=== PATIENT | female | born 1960 | race Caucasian/White ===

== ENCOUNTER 2019-05-06 10:15 | Outpatient (CLI) | payer MEDICAID ==
[2019-05-06 13:08] LABS: BASOPHILS # (AUTO) 0.1 10^3/uL (0.0-0.1); BASOPHILS % (AUTO) 0.9 %; EOSINOPHILS # (AUTO) 0.1 10^3/uL (0.0-0.7); EOSINOPHILS % (AUTO) 1.2 %; LYMPHOCYTES # (AUTO) 1.8 10^3/uL (1.5-3.5); MEAN CORPUSCULAR HEMOGLOBIN 32.5 pg (27.0-31.0); MEAN CORPUSCULAR HGB CONC 32.8 g/dL (32.0-36.0); MEAN CORPUSCULAR VOLUME 99.1 fL (81.0-99.0); MEAN PLATELET VOLUME 9.3 fL (7.9-10.8); MONOCYTES # (AUTO) 0.6 10^3/uL (0.0-1.0); MONOCYTES % (AUTO) 8.7 %; NEUTROPHILS # (AUTO) 4.2 10^3/uL (1.5-6.6); NEUTROPHILS % (AUTO) 61.8 %; PLT - PLATELET COUNT 303 10^3/uL (130-450); RED BLOOD COUNT 4.62 10^6/uL (4.20-5.40); RED CELL DISTRIBUTION WIDTH 12.6 % (12.0-15.0); WHITE BLOOD COUNT 6.8 x10^3/uL (4.8-10.8)
[2019-05-06 13:32] LABS: HB2 TOTAL 15.3 g/dL; HEMOGLOBIN A1C 0.54 g/dL; HEMOGLOBIN A1C % 5.4 % (4.6-6.2)
[2019-05-06 13:38] LABS: ALBUMIN 4.4 g/dL (3.2-5.5); ALBUMIN/GLOBULIN RATIO 1.6 (1.0-2.2); ALKALINE PHOSPHATASE 96 IU/L (42-121); ALT ALANINE AMINOTRANSFERASE 22 IU/L (10-60); AST ASPARTATE AMINOTRANSFERASE 31 IU/L (10-42); BILIRUBIN,TOTAL 0.4 mg/dL (0.2-1.0); BUN - BLOOD UREA NITROGEN 11 mg/dL (6-20); CALCIUM 9.5 mg/dL (8.5-10.3); CARBON DIOXIDE - CO2 27 mmol/L (21-32); CHLORIDE 106 mmol/L (101-111); CHOL/HDL RATIO 2.6 (<4.4); CHOLESTEROL 202 mg/dL; CREATININE 0.7 mg/dL (0.4-1.0); GFR - MDRD 85 (>89); GLUCOSE 99 mg/dL (70-100); HDL CHOLESTEROL 77 mg/dL; LDL CHOLESTEROL,CALCULATED 111 mg/dL; LDL/HDL RATIO 1.4 (<4.4); SODIUM 141 mmol/L (135-145); TOTAL PROTEIN 7.2 g/dL (6.7-8.2); VLDL CHOLESTEROL 14 mg/dL
== END 2019-05-06 23:59 | disposition home or self-care (01) ==
LOC: LAB.WCP 10:15
PROVIDERS: ATTEND Physician Assistant
DX: Z13.220 Encounter for screening for lipoid disorders (principal); R63.4 Abnormal weight loss
CPT/HCPCS: 36415; 80053; 80061; 83036; 83721; 84443; 85025

== ENCOUNTER 2019-06-08 08:44 | Outpatient (CLI) | payer MEDICAID ==
--- NOTE | 2019-06-08 14:48 | Ultrasound Report ---
Reason: ABNORMAL MAMMO Procedure Date: 06/08/2019 Accession Number: [id number] / [id number] Procedure: US - Breast Unilateral Limited CPT Code: Final Report FULL RESULT: EXAM: Diagnostic Shaq Dorado, Breast Unilateral Limited DATE: 06/08/2019 10:02 AM CLINICAL HISTORY: The patient is a 59-year-old female presenting with intermittent right nipple discharge and pain. No reported family history breast cancer. BILATERAL MAMMOGRAM: TECHNIQUE: (B) - Bilateral CC and MLO views were obtained. True lateral and magnification views of the right breast obtained. COMPARISON: None. New baseline. PARENCHYMAL PATTERN: (A) - The breasts demonstrate scattered fibroglandular densities bilaterally. FINDINGS: Nonspecific glandular asymmetry noted on this new baseline examination. There are no suspicious masses, calcifications, or areas of distortion. Specifically, there is no explanation for intermittent right-sided nipple discharge and focal pain. RIGHT BREAST ULTRASOUND: TECHNIQUE: A high-frequency transducer was utilized to evaluate the periareolar position of the breast. Doppler utilized as appropriate. Can Conveyor Feeder static images obtained. FINDINGS: [place] of normal fibroglandular tissue present. No dilated ducts, solid mass, cysts, hyperemia or distortion. There are no sonographically suspicious findings. IMPRESSION: Benign findings. BI-RADS category 2. RECOMMENDATION: ( 1. Clinical follow-up of the right breast for pain and discharge. Negative imaging should not dissuade further evaluation of any suspicious changes. 2. Screening mammography is recommended annually. BI-RADS CATEGORY: (2) - Benign Findings. STANDARD QUALIFYING STATEMENTS: This examination was not reviewed with the aid of Computer-Aided Detection (CAD). A negative or benign imaging report should not preclude biopsy if clinically suspicious findings are present. Dense breasts may obscure an underlying neoplasm.
== END 2019-06-08 08:45 | disposition home or self-care (01) ==
LOC: DI 08:44
PROVIDERS: ATTEND Physician Assistant
DX: N64.4 Mastodynia (principal); N64.52 Nipple discharge
CPT/HCPCS: 76642; 77066

== ENCOUNTER 2019-06-08 08:49 | Outpatient (CLI) | payer MEDICAID ==
[2019-06-08] MEDS ORDERED: IOVERSOL 320 100 ML VIAL IVP ONE ×2 (08:53→11:39)
[2019-06-08] MEDS ORDERED: IOVERSOL 320 50 ML VIAL ONE (08:53)
[2019-06-08 09:42] LABS: CALCIUM 9.2 mg/dL (8.5-10.3); CREATININE 0.6 mg/dL (0.4-1.0)
[2019-06-08] MEDS ORDERED: IOVERSOL 320 50 ML VIAL PO ONE (11:39)
--- NOTE | 2019-06-08 16:02 | XRAY Report ---
Reason: PAIN IN RT HIP Procedure Date: 06/08/2019 Accession Number: [id number] / [id number] Procedure: XR - Hip w/Pelvis 2-3V RT CPT Code: Final Report FULL RESULT: EXAM: RIGHT HIP RADIOGRAPHY EXAM DATE: 06/08/2019 09:16 AM. CLINICAL HISTORY: PAIN IN RT HIP. COMPARISON: None. TECHNIQUE: 3 views. FINDINGS: Bones: Normal. No fractures or bone lesion. Joints: Mildly shallow right acetabulum with femoral head relatively uncovered laterally. Marked superior right hip joint space narrowing. Moderate ring osteophyte formation at the right femoral head. Left hip unremarkable. Pubic symphysis and sacroiliac joints unremarkable. Metallic cages at the L5-S1 disk space. Soft Tissues: Bilateral pelvic phleboliths. IMPRESSION: Mild right acetabular dysplasia. Severe right hip osteoarthritis. RADIA
--- NOTE | 2019-06-08 17:04 | CT Report ---
Reason: ABD PAIN, WEIGHT LOSS, UMBILICAL HERNIA Procedure Date: 06/08/2019 Accession Number: [id number] / [id number] Procedure: CT - Abdomen/Pelvis W CPT Code: Final Report FULL RESULT: EXAM: CT ABDOMEN AND PELVIS EXAM DATE: 06/08/2019 10:55 AM. CLINICAL HISTORY: Abdominal pain. Weight loss. Umbilical hernia. COMPARISONS: HIP W/PELVIS 2-3V RT 06/08/2019 9:00 AM. TECHNIQUE: Routine helical CT imaging was performed through the abdomen and pelvis. IV contrast: Optiray 320 100 mL. Enteric contrast: No. Reconstructions: Coronal and sagittal. In accordance with CT protocol optimization, one or more of the following dose reduction techniques were utilized for this exam: automated exposure control, adjustment of mA and/or KV based on patient size, or use of iterative reconstructive technique. FINDINGS: Lung Bases: Unremarkable. Liver: Mildly hypodense consistent with fatty infiltration. No discrete lesions. Gallbladder/Bile Ducts: Unremarkable. Spleen: Normal. Pancreas: Normal. Adrenal Glands: Normal. Kidneys: The right kidney is normal. There is a simple cyst affiliated with the medial aspect of the upper pole of the left kidney measuring 2.5 cm in maximal dimension. No solid renal masses. No hydronephrosis nor hydroureter. Peritoneal Cavity/Bowel: The colon is stool-filled. There are no dilated segments of small or large bowel. Few shotty mesenteric and retroperitoneal lymph nodes present. No dagmar adenopathy or free fluid. Pelvic Organs: The bladder and visualized pelvic organs are within normal limits. Vasculature: Atherosclerotic calcifications are affiliated with the aorta and visceral arteries. No aneurysmal dilation. Bones: Degenerative changes in the lumbar spine. L5-S1 disk metallic cage hardware appears intact. Other: Tiny fat-containing umbilical hernia is noted. No evidence for incarceration. IMPRESSION: 1. Moderate retained stool in the colon. No acute inflammatory process. 2. Tiny fat-containing umbilical hernia. No incarceration. 3. Atherosclerotic calcifications in the aorta and visceral arteries. RADIA
== END 2019-06-08 08:50 | disposition home or self-care (01) ==
LOC: DI 08:49
PROVIDERS: ATTEND Physician Assistant
DX: R10.9 Unspecified abdominal pain (principal); R63.4 Abnormal weight loss; K42.9 Umbilical hernia without obstruction or gangrene; M16.11 Unilateral primary osteoarthritis, right hip; Q65.89 Other specified congenital deformities of hip; N64.4 Mastodynia; N64.52 Nipple discharge
CPT/HCPCS: 36415; 73502; 74177; 76642; 77066; 80048; Q9967

== ENCOUNTER 2019-06-29 08:00 | Outpatient (CLI) | payer MEDICAID ==
[2019-06-29 10:02] LABS: H. PYLORIS ANTIGEN STL NEGATIVE (Negative)
== END 2019-06-29 23:59 | disposition home or self-care (01) ==
LOC: LAB.R 08:00
PROVIDERS: ATTEND Surgery
DX: R10.9 Unspecified abdominal pain (principal)
CPT/HCPCS: 87338

== ENCOUNTER 2019-07-07 10:20 | Day surgery (SDC) | payer MEDICAID ==
[2019-07-07] MEDS ORDERED: LACTATED RINGERS 1,000 ML IV ONE ×2 (10:21→12:42)
[2019-07-07] MEDS ORDERED: LIDO GARGLE 30 ML BOTTLE PO ONE (11:20)
[2019-07-07] MEDS ORDERED: LIDO GARGLE 30 ML BOTTLE ONE (11:41)
[2019-07-07] MEDS ORDERED: MIDAZOLAM 2 MG/2 ML VIAL IVP ONE (11:54)
[2019-07-07] MEDS ORDERED: fentaNYL 250 MCG/5 ML VIAL IVP ONE (11:54)
[2019-07-07 13:35] VITALS: BP 113/76
== END 2019-07-07 10:21 | disposition home or self-care (01) ==
LOC: SDS 10:20
PROVIDERS: ATTEND Surgery
PROC: 0DB68ZX Excision of Stomach, Via Natural or Artificial Opening Endoscopic, Diagnostic (ICD-10-PCS; 2019-07-07)
PROC: 0DB48ZX Excision of Esophagogastric Junction, Via Natural or Artificial Opening Endoscopic, Diagnostic (ICD-10-PCS; 2019-07-07)
PROC: 0DBE8ZX Excision of Large Intestine, Via Natural or Artificial Opening Endoscopic, Diagnostic (ICD-10-PCS; principal; 2019-07-07 11:45)
PROC: 0DB98ZX Excision of Duodenum, Via Natural or Artificial Opening Endoscopic, Diagnostic (ICD-10-PCS; 2019-07-07 11:45)
DX: K22.70 Barrett's esophagus without dysplasia (principal); K57.30 Diverticulosis of large intestine without perforation or abscess without bleeding; K31.9 Disease of stomach and duodenum, unspecified; F41.0 Panic disorder [episodic paroxysmal anxiety]; F17.210 Nicotine dependence, cigarettes, uncomplicated; Z80.0 Family history of malignant neoplasm of digestive organs
CPT/HCPCS: 43239; 45380; 87081; A9270; J3010; J7120

== ENCOUNTER 2022-03-13 10:30 | Outpatient (CLI) | payer MEDICAID ==
[2022-03-13 10:46] LABS: BASOPHILS # (AUTO) 0.1 10^3/uL (0.0-0.1); BASOPHILS % (AUTO) 1.4 %; EOSINOPHILS # (AUTO) 0.2 10^3/uL (0.0-0.7); EOSINOPHILS % (AUTO) 3.6 %; HCT - HEMATOCRIT 46.1 % (37.0-47.0); HGB - HEMOGLOBIN 15.2 g/dL (12.0-16.0); LYMPHOCYTES # (AUTO) 1.4 10^3/uL (1.5-3.5); LYMPHOCYTES % (AUTO) 31.8 %; MEAN CORPUSCULAR HEMOGLOBIN 33.5 pg (27.0-31.0); MEAN CORPUSCULAR VOLUME 101.5 fL (81.0-99.0); MEAN PLATELET VOLUME 8.5 fL (7.9-10.8); MONOCYTES # (AUTO) 0.6 10^3/uL (0.0-1.0); NEUTROPHILS # (AUTO) 2.2 10^3/uL (1.5-6.6); NEUTROPHILS % (AUTO) 49.2 %; PLT - PLATELET COUNT 233 10^3/uL (130-450); RED BLOOD COUNT 4.54 10^6/uL (4.20-5.40); RED CELL DISTRIBUTION WIDTH 12.8 % (12.0-15.0); WHITE BLOOD COUNT 4.4 x10^3/uL (4.8-10.8)
[2022-03-13 11:08] LABS: ALBUMIN 4.4 g/dL (3.2-5.5); ALBUMIN/GLOBULIN RATIO 1.4 (1.0-2.2); ALKALINE PHOSPHATASE 108 IU/L (42-121); ALT ALANINE AMINOTRANSFERASE 23 IU/L (10-60); AST ASPARTATE AMINOTRANSFERASE 36 IU/L (10-42); BILIRUBIN,TOTAL 0.3 mg/dL (0.2-1.0); BUN - BLOOD UREA NITROGEN 15 mg/dL (6-20); CALCIUM 9.7 mg/dL (8.5-10.3); CARBON DIOXIDE - CO2 27 mmol/L (21-32); CHLORIDE 101 mmol/L (101-111); CHOL/HDL RATIO 2.6 (<4.4); CHOLESTEROL 208 mg/dL; CREATININE 0.7 mg/dL (0.4-1.0); GFR - MDRD 85 (>89); GLUCOSE 96 mg/dL (70-100); HDL CHOLESTEROL 81 mg/dL; LDL CHOLESTEROL,CALCULATED 116 mg/dL; LDL/HDL RATIO 1.4 (<4.4); MAGNESIUM 1.8 mg/dL (1.7-2.8); SODIUM 138 mmol/L (135-145); TOTAL PROTEIN 7.6 g/dL (6.7-8.2); TRIGLYCERIDES 56 mg/dL; VLDL CHOLESTEROL 11 mg/dL
[2022-03-13 11:16] LABS: THYROID STIMULATING HORMONE 1.97 uIU/mL (0.34-5.60)
== END 2022-03-13 10:31 | disposition home or self-care (01) ==
LOC: LAB 10:30
PROVIDERS: ATTEND Family Medicine
DX: K58.0 Irritable bowel syndrome with diarrhea (principal); F10.20 Alcohol dependence, uncomplicated; R10.84 Generalized abdominal pain; K21.9 Gastro-esophageal reflux disease without esophagitis; E56.9 Vitamin deficiency, unspecified
CPT/HCPCS: 36415; 80050; 80061; 82306; 82607; 82746; 83721; 83735

== ENCOUNTER 2022-03-13 10:32 | Outpatient (CLI) | payer MEDICAID ==
--- NOTE | 2022-03-14 11:18 | Mammography Report ---
UNILATERAL LEFT DIGITAL DIAGNOSTIC MAMMOGRAM 3D/2D: 03/13/2022 CLINICAL: Patient returns today to evaluate a focal asymmetry in the left breast. Comparison is made to exams dated: 12/20/2021 mammogram and 06/08/2019 mammogram - [facility]. There are scattered areas of fibroglandular density in the left breast (category b / 25%-50% glandula r tissue). The previously seen asymmetry in the left breast is no longer visualized, presumably secondary to sup erimposed fibroglandular breast tissue on the prior exam. No significant masses, calcifications, or other findings are seen in the breast. IMPRESSION: NEGATIVE There is no mammographic evidence of malignancy. Return to annual mammogram screening schedule is rec ommended. Based on the Tyrer Cuzick model (a risk assessment model) the patients lifetime risk is 4.8% and her 10 year risk is 2.1%. According to the ACR, ACS, and NCCN guidelines, an annual breast MRI exam paul g with mammogram is recommended if the patients lifetime risk is 20% or greater. This exam was interpreted at Station ID: [id number]. NOTE: For mammograms, a report in lay terms will be sent to the patient. Approximately 15% of breast malignancies will not be visualized mammographically. In the management of a palpable breast mass, a negative mammogram must not discourage biopsy of a clinically suspicious lesion. Electronically Signed By: Tank landaverde/afshan:03/13/2022 20:38:10 ACR BI-RADS Category 1: Negative 3341F PARENCHYMAL PATTERN: (A) - The breast(s) demonstrate(s) scattered fibroglandular densities. BI-RADS CATEGORY: (1) - 1 Mammogram [id number] return to screening LATERALITY: (B)
== END 2022-03-13 10:33 | disposition home or self-care (01) ==
LOC: DI 10:32
PROVIDERS: ATTEND Family Medicine
DX: R92.8 Other abnormal and inconclusive findings on diagnostic imaging of breast (principal)

== ENCOUNTER 2022-07-08 13:25 | Outpatient (CLI) | payer MEDICAID ==
--- NOTE | 2022-07-08 14:02 | CT Report ---
PROCEDURE: Low Dose Lung Cancer Screen INDICATIONS: SMOKER TECHNIQUE: Noncontrast low-dose axial images were acquired from the pulmonary apices to the posterior costophren ic angles. Multiplanar MIP reformats were then reconstructed. For radiation dose reduction, the follo wing was used: automated exposure control, adjustment of mA and/or kV according to patient size. COMPARISON: None. FINDINGS: Image quality: Good, allowing for low radiation dose. Lungs and pleura:No dense consolidation or pleural effusion. There is scattered scarring and atelecta tic regions. Emphysema. Bochdalek's hernias. Multiple small pulmonary nodules are present, for example on the left . Index nodule in the righ t measures 6 to 7 mm (4/174). Mediastinum, heart, and esophagus: Nonspecific patulous appearance of the esophagus. Coronary calcifi cations. No pathologic adenopathy by size criteria. Atherosclerotic calcifications. Normal heart size . Chest wall and thyroid: Unremarkable appearance of the thyroid. Chest wall is unremarkable. Upper abdomen: Unremarkable on these limited noncontrast low-dose images. Mildly distended stomach is partially seen. Bones: No acute or suspicious osseous abnormality. There are degenerative changes. IMPRESSION: Lung RADS 3: 6 month follow-up is recommended. (Right side pulmonary nodule 4/174) Reviewed by: Singh Amaral MD on 07/08/2022 2:00 PM PST Approved by: Singh Amaral MD on 07/08/2022 2:00 PM PST Station ID: [id number]
== END 2022-07-08 13:26 | disposition home or self-care (01) ==
LOC: DI 13:25
PROVIDERS: ATTEND Family Medicine
DX: Z12.2 Encounter for screening for malignant neoplasm of respiratory organs (principal); R06.02 Shortness of breath; R91.1 Solitary pulmonary nodule; F17.210 Nicotine dependence, cigarettes, uncomplicated